=== PATIENT | female | born 1980 | race Caucasian/White ===

== ENCOUNTER 2018-04-10 17:34 | Emergency (ER) | payer MEDICAID | END 2018-04-10 19:56 | disposition home or self-care (01) | LOC: ED 17:34 ==

== ENCOUNTER 2018-05-10 22:23 | Emergency (ER) | payer MEDICAID ==
[~2018-05-10] VITALS: Ht 170.2 cm; Wt 64.0 kg
[2018-05-11 00:08] VITALS: BP 120/86
== END 2018-05-11 00:08 | disposition home or self-care (01) ==
LOC: ED 22:23
DX: J02.9 Acute pharyngitis, unspecified (principal)

== ENCOUNTER 2018-05-12 14:28 | Emergency (ER) | payer MEDICAID ==
[~2018-05-12] VITALS: Ht 170.2 cm; Wt 63.0 kg
[2018-05-12 14:33] VITALS: BP 113/78; Ht 170.2 cm; Wt 63.0 kg
== END 2018-05-12 16:34 | disposition home or self-care (01) ==
LOC: ED 14:28
DX: T36.0X5A Adverse effect of penicillins, initial encounter (principal); R10.9 Unspecified abdominal pain; J06.9 Acute upper respiratory infection, unspecified; Y92.89 Other specified places as the place of occurrence of the external cause

== ENCOUNTER 2018-06-11 12:32 | Emergency (ER) | payer MEDICAID ==
[~2018-06-11] VITALS: Ht 170.2 cm; Wt 61.7 kg
[2018-06-11 12:36] VITALS: Ht 170.2 cm; Wt 61.7 kg
[2018-06-11 13:33] VITALS: BP 117/69
== END 2018-06-11 15:11 | disposition home or self-care (01) ==
LOC: ED 12:32
DX: J02.9 Acute pharyngitis, unspecified (principal); M79.10 Myalgia, unspecified site